=== PATIENT | male | born 1985 | race African-American/Black ===

== ENCOUNTER 2023-04-02 13:07 | Observation (INO) | payer OTHER ==
[~2023-04-02] VITALS: Ht 193 cm; Wt 104.7 kg
[2023-04-02] MEDS ORDERED: dexAMETHasone 20MG/5ML VIAL IV ONE (14:00)
[2023-04-02] MEDS ORDERED: NS 1,000 ML IV ONE (14:00)
[2023-04-02 14:21] LABS: BASO % 0.2 % (0.0-1.0); EOS # 0.1 10^3/uL (0.0-0.5); EOS % 0.5 % (0.0-3.0); HEMATOCRIT 40.1 % (42.0-52.0); HEMOGLOBIN 13.1 g/dl (13.5-17.5); LYMPH # 1.2 10^3/uL (1.5-5.0); LYMPH % 9.2 % (24.0-44.0); MEAN CORPUSCULAR HEMOGLOBIN 29.8 pg (27.0-33.0); MEAN CORPUSCULAR HGB CONC 32.7 g/dl (32.0-36.5); MEAN CORPUSCULAR VOLUME 91.3 fl (80.0-96.0); MONO # 1.3 10^3/uL (0.0-0.8); MONO % 9.9 % (2.0-8.0); NEUTROPHILS # 10.5 10^3/uL (1.5-8.5); NEUTROPHILS % 79.6 % (36.0-66.0); PLATELET COUNT, AUTOMATED 254 10^3/uL (150-450); RED BLOOD COUNT 4.39 10^6/uL (4.30-6.10); WHITE BLOOD COUNT 13.2 10^3/uL (4.0-10.0)
[2023-04-02] MEDS ORDERED: AMPICILLIN SOD/SULBACTAM SOD 3 GM in D5W MINI-BAG PLUS 100 ML IV ONE (14:35)
[2023-04-02] MEDS ORDERED: ACETAMINOPHEN TAB 650MG DOSE (2X325MG) PO ONE (14:35)
[2023-04-02 14:44] LABS: BLOOD UREA NITROGEN 17 MG/DL (9-23); CALCIUM LEVEL 9.3 MG/DL (8.5-10.1); CARBON DIOXIDE LEVEL 28 MMOL/L (20-31); CHLORIDE LEVEL 102 MMOL/L (98-107); CREATININE FOR GFR 1.15 MG/DL (0.70-1.30); GLOMERULAR FILTRATION RATE > 60.0 (>60); GLUCOSE, FASTING 101 MG/DL (60-100); POTASSIUM SERUM 4.1 MMOL/L (3.5-5.1); SODIUM LEVEL 140 MMOL/L (136-145)
[2023-04-02] MEDS ORDERED: ISOVUE-370 76% 100ML VIAL As Ordered ONE (14:50)
[2023-04-02] MEDS ORDERED: MED REC IN PROGRESS XX SCH (16:15)
[2023-04-02] MEDS ORDERED: ACETAMINOPHEN 500 MG TAB PO PRN (16:25)
[2023-04-02] MEDS ORDERED: KETOROLAC 30 MG/ML 1ML VIAL IV PRN (16:25)
[2023-04-02] MEDS ORDERED: CEPACOL LOZENGE PO PRN (16:25)
[2023-04-02] MEDS ORDERED: GNPCAP31 PO (16:54)
[2023-04-02] MEDS ORDERED: DM/P237L PO (16:54)
[2023-04-02] MEDS ORDERED: HOME MED LIST COMPLETE! XX SCH (16:55)
[2023-04-02 20:30] VITALS: BP 138/80; TEMP 97.5; O2SAT 98
[2023-04-02] MEDS: AMPICILLIN SOD/SULBACTAM SOD 3 GM in D5W MINI-BAG PLUS 100 ML IV SCH (20:43)
[2023-04-03] MEDS: AMPICILLIN SOD/SULBACTAM SOD 3 GM in D5W MINI-BAG PLUS 100 ML IV SCH ×2 (03:27→09:23)
[2023-04-03 06:22] VITALS: BP 141/82; TEMP 97.7; O2SAT 100
[2023-04-03 06:54] LABS: HEMATOCRIT 38.6 % (42.0-52.0); HEMOGLOBIN 12.8 g/dl (13.5-17.5); MEAN CORPUSCULAR HEMOGLOBIN 29.8 pg (27.0-33.0); MEAN CORPUSCULAR HGB CONC 33.2 g/dl (32.0-36.5); PLATELET COUNT, AUTOMATED 263 10^3/uL (150-450); RED BLOOD COUNT 4.29 10^6/uL (4.30-6.10); WHITE BLOOD COUNT 16.1 10^3/uL (4.0-10.0)
[2023-04-03 07:18] LABS: BLOOD UREA NITROGEN 15 MG/DL (9-23); CALCIUM LEVEL 9.1 MG/DL (8.5-10.1); CARBON DIOXIDE LEVEL 30 MMOL/L (20-31); CHLORIDE LEVEL 102 MMOL/L (98-107); CREATININE FOR GFR 0.94 MG/DL (0.70-1.30); GLOMERULAR FILTRATION RATE > 60.0 (>60); GLUCOSE, FASTING 127 MG/DL (60-100); POTASSIUM SERUM 4.2 MMOL/L (3.5-5.1); SODIUM LEVEL 138 MMOL/L (136-145)
[2023-04-03 07:24] LABS: PROCALCITONIN <0.04 ng/ml
[2023-04-03] MEDS ORDERED: ENOXAPARIN 40MG/0.4ML SYRINGE (J1650 PER 10MG) SC SCH (09:00)
[2023-04-03] MEDS ORDERED: dexAMETHasone 20MG/5ML VIAL IV SCH (09:00)
[2023-04-03] MEDS ORDERED: ACET-841 PO (09:29)
[2023-04-03] MEDS ORDERED: AMOX875T2 PO (09:29)
[2023-04-03] MEDS ORDERED: DEXA4TA PO (09:31)
== END 2023-04-03 11:00 | disposition home or self-care (01) ==
LOC: M ED 13:07 → INTOOBSV 16:18 → M ED INP 16:18 → M MS4PR 19:57
PROVIDERS: ADMIT Internal Medicine; ATTEND Internal Medicine
DX: A41.9 Sepsis, unspecified organism (principal); J03.90 Acute tonsillitis, unspecified; D72.829 Elevated white blood cell count, unspecified; Z79.52 Long term (current) use of systemic steroids; Z79.899 Other long term (current) drug therapy; Z79.2 Long term (current) use of antibiotics
CPT/HCPCS: 36415; 70491; 80048; 83605; 84145; 85025; 85027; 87040; 87486; 87581; 87633; 87798; 87880; 93041; 94760; 96365; 96366; 96375; 96376; 99285; J0295; J1100; Q9967

== ENCOUNTER 2023-04-08 02:48 | Inpatient (IN) | payer OTHER ==
[2023-04-08] VITALS (7 sets, daily range): BP systolic 128–143; BP diastolic 61–87; TEMP 97.5–98.5; O2SAT 90–96
[~2023-04-08] VITALS: Ht 193 cm; Wt 115.0 kg
[~2023-04-08 02:48] MED LIST: ACET-841 PO; AMOX875T2 PO; DEXA4TA PO; DM/P237L PO; GNPCAP31 PO
[2023-04-08] MEDS ORDERED: NS 1,000 ML IV ONE (05:10)
[2023-04-08] MEDS ORDERED: AMPICILLIN SOD/SULBACTAM SOD 3 GM in D5W MINI-BAG PLUS 100 ML IV ONE (05:40)
[2023-04-08] MEDS ORDERED: ISOVUE-370 76% 100ML VIAL As Ordered ONE (05:46)
[2023-04-08 06:06] LABS: BASO % 0.3 % (0.0-1.0); EOS # 0.2 10^3/uL (0.0-0.5); EOS % 1.1 % (0.0-3.0); HEMATOCRIT 38.4 % (42.0-52.0); HEMOGLOBIN 12.6 g/dl (13.5-17.5); LYMPH # 3.2 10^3/uL (1.5-5.0); LYMPH % 20.1 % (24.0-44.0); MEAN CORPUSCULAR HEMOGLOBIN 29.9 pg (27.0-33.0); MEAN CORPUSCULAR HGB CONC 32.8 g/dl (32.0-36.5); MEAN CORPUSCULAR VOLUME 91.2 fl (80.0-96.0); MONO # 1.2 10^3/uL (0.0-0.8); MONO % 7.9 % (2.0-8.0); NEUTROPHILS # 10.9 10^3/uL (1.5-8.5); NEUTROPHILS % 68.9 % (36.0-66.0); PLATELET COUNT, AUTOMATED 313 10^3/uL (150-450); RED BLOOD COUNT 4.21 10^6/uL (4.30-6.10); WHITE BLOOD COUNT 15.8 10^3/uL (4.0-10.0)
[2023-04-08] MEDS ORDERED: MORPHINE 2 MG/ML 1ML VIAL IV ONE (06:40)
[2023-04-08] MEDS ORDERED: AMOX875T2 PO (06:46)
[2023-04-08] MEDS ORDERED: ACET-897 PO (06:46)
[2023-04-08] MEDS ORDERED: HOME MED LIST COMPLETE! XX SCH (06:50)
[2023-04-08] MEDS: ACETAMINOPHEN TAB 650MG DOSE (2X325MG) PO PRN ×2 (08:09→16:55)
[2023-04-08 08:38] LABS: ALBUMIN 3.1 G/DL (3.2-5.2); ALKALINE PHOSPHATASE 58 U/L (46-116); ALT/SGPT 30 U/L (7.0-40); AST/SGOT 10 U/L (<34); BILIRUBIN,TOTAL 0.5 MG/DL (0.3-1.2); BLOOD UREA NITROGEN 16 MG/DL (9-23); CALCIUM LEVEL 8.7 MG/DL (8.5-10.1); CARBON DIOXIDE LEVEL 33 MMOL/L (20-31); CHLORIDE LEVEL 104 MMOL/L (98-107); CREATININE FOR GFR 1.14 MG/DL (0.70-1.30); GLOMERULAR FILTRATION RATE > 60.0 (>60); GLUCOSE, FASTING 89 MG/DL (60-100); MAGNESIUM LEVEL 1.8 MG/DL (1.8-2.4); POTASSIUM SERUM 3.6 MMOL/L (3.5-5.1); SODIUM LEVEL 141 MMOL/L (136-145); TOTAL PROTEIN 6.3 G/DL (5.7-8.2)
[2023-04-08] MEDS: NS 1,000 ML IV SCH ×2 (08:59→20:12)
[2023-04-08 09:15] LABS: ANTI-STREPTOLYSIN O QUANT 170.4 IU/ML (<195)
[2023-04-08] MEDS ORDERED: MIDAZOLAM INJ 2MG/2ML VIAL As Ordered ONE (10:16)
[2023-04-08] MEDS ORDERED: ROCURONIUM BROMIDE 50MG/5ML VIAL As Ordered ONE (10:16)
[2023-04-08] MEDS ORDERED: ONDANSETRON 4MG 2ML VIAL As Ordered ONE (10:16)
[2023-04-08] MEDS ORDERED: propofoL 200 MG/20 ML VIAL As Ordered ONE (10:16)
[2023-04-08] MEDS ORDERED: fentaNYL 100 MCG/2 ML INJECTION As Ordered ONE (10:16)
[2023-04-08] MEDS ORDERED: LIDOCAINE 2% 100MG/5ML SDV (FOR ANES.) As Ordered ONE (10:16)
[2023-04-08] MEDS ORDERED: ACETAMINOPHEN 1000MG 100ML IV BAG As Ordered ONE (10:22)
[2023-04-08] MEDS ORDERED: CLINDAMYCIN 900MG/50ML PREMIX BAG As Ordered ONE (12:47)
[2023-04-08] MEDS ORDERED: LIDOCAINE W/EPINEPHRINE 1% 20ML VIAL As Ordered ONE (12:47)
[2023-04-08] MEDS ORDERED: LABETALOL 100MG/20ML VIAL As Ordered ONE (13:15)
[2023-04-08] MEDS ORDERED: dexmedeTOMIDine (4MCG/ML)200MCG/50ML BTL (PRECEDEX) As Ordered ONE (13:23)
[2023-04-08] MEDS ORDERED: SUGAMMADEX SODIUM 500 MG/5 ML VIAL (BRIDION) As Ordered ONE (13:27)
[2023-04-08] MEDS ORDERED: LR 1,000 ML IV SCH (13:45)
[2023-04-08] MEDS ORDERED: ONDANSETRON 4MG 2ML VIAL IV PRN (13:45)
[2023-04-08] MEDS ORDERED: HYDROMORPHONE HCL 0.5 MG/ 0.5 ML SYRINGE IV PRN (13:45)
[2023-04-08] MEDS: oxyCODONE 5MG TAB PO PRN ×2 (14:09→14:40)
[2023-04-08] MEDS: fentaNYL 100 MCG/2 ML INJECTION IV PRN ×4 (14:10→14:30)
[2023-04-08] MEDS: methylPREDNISolone 40MG 1ML VIAL IV SCH ×2 (15:05→23:45)
[2023-04-08] MEDS: AMPICILLIN SOD/SULBACTAM SOD 3 GM in D5W MINI-BAG PLUS 100 ML IV SCH ×3 (15:06→23:45)
[2023-04-09] VITALS (7 sets, daily range): BP systolic 115–137; BP diastolic 52–78; TEMP 97.5–98.3; O2SAT 94–99
[2023-04-09] MEDS: NS 1,000 ML IV SCH (05:20)
[2023-04-09] MEDS: AMPICILLIN SOD/SULBACTAM SOD 3 GM in D5W MINI-BAG PLUS 100 ML IV SCH ×3 (05:20→17:40)
[2023-04-09 06:41] LABS: BASO % 0.1 % (0.0-1.0); HEMATOCRIT 37.8 % (42.0-52.0); HEMOGLOBIN 12.3 g/dl (13.5-17.5); LYMPH # 0.7 10^3/uL (1.5-5.0); LYMPH % 5.2 % (24.0-44.0); MEAN CORPUSCULAR HEMOGLOBIN 29.2 pg (27.0-33.0); MEAN CORPUSCULAR HGB CONC 32.5 g/dl (32.0-36.5); MEAN CORPUSCULAR VOLUME 89.8 fl (80.0-96.0); MONO # 0.3 10^3/uL (0.0-0.8); MONO % 2.2 % (2.0-8.0); NEUTROPHILS # 12.9 10^3/uL (1.5-8.5); PLATELET COUNT, AUTOMATED 340 10^3/uL (150-450); RED BLOOD COUNT 4.21 10^6/uL (4.30-6.10); WHITE BLOOD COUNT 14.2 10^3/uL (4.0-10.0)
[2023-04-09] MEDS: ACETAMINOPHEN TAB 650MG DOSE (2X325MG) PO PRN (08:02)
[2023-04-09] MEDS ORDERED: INFLUENZA QUADRIVALENT PF VACCINE 0.5ML SYRINGE IM.IMMUN ONE (09:00)
[2023-04-09] MEDS: predniSONE 20 MG TAB PO SCH (11:34)
[2023-04-09 15:21] LABS: BLOOD UREA NITROGEN 13 MG/DL (7-21); C REACTIVE PROTEIN QUANTITATIV 38.95 MG/L (1.00-3.00); CREATININE FOR GFR 0.9 MG/DL (0.7-1.5); GLOMERULAR FILTRATION RATE > 60.0 (>60); GLUCOSE, FASTING 148 MG/DL (70-99); POTASSIUM SERUM 4.6 MEQ/L (3.6-5.0); SODIUM LEVEL 138 MEQ/L (134-153)
[2023-04-09 15:22] LABS: CALCIUM LEVEL 9.2 MG/DL (8.4-10.2); CARBON DIOXIDE LEVEL 25 MEQ/L (22-30); CHLORIDE LEVEL 100 MEQ/L (98-107)
[2023-04-10] MEDS: AMPICILLIN SOD/SULBACTAM SOD 3 GM in D5W MINI-BAG PLUS 100 ML IV SCH ×3 (00:29→11:12)
[2023-04-10 03:37] VITALS: BP 138/75; TEMP 97.9; O2SAT 98
[2023-04-10 05:48] LABS: BASO % 0.2 % (0.0-1.0); EOS # 0.1 10^3/uL (0.0-0.5); EOS % 0.6 % (0.0-3.0); HEMATOCRIT 33.4 % (42.0-52.0); HEMOGLOBIN 11.2 g/dl (13.5-17.5); LYMPH # 2.5 10^3/uL (1.5-5.0); LYMPH % 18.5 % (24.0-44.0); MEAN CORPUSCULAR HEMOGLOBIN 29.6 pg (27.0-33.0); MEAN CORPUSCULAR HGB CONC 33.5 g/dl (32.0-36.5); MEAN CORPUSCULAR VOLUME 88.1 fl (80.0-96.0); MONO # 1.1 10^3/uL (0.0-0.8); NEUTROPHILS # 9.8 10^3/uL (1.5-8.5); NEUTROPHILS % 71.7 % (36.0-66.0); PLATELET COUNT, AUTOMATED 302 10^3/uL (150-450); RED BLOOD COUNT 3.79 10^6/uL (4.30-6.10); WHITE BLOOD COUNT 13.7 10^3/uL (4.0-10.0)
[2023-04-10] MEDS: ACETAMINOPHEN TAB 650MG DOSE (2X325MG) PO PRN (06:04)
[2023-04-10 07:47] VITALS: BP 128/63; TEMP 98.1; O2SAT 98
[2023-04-10] MEDS: predniSONE 20 MG TAB PO SCH (08:04)
[2023-04-10 11:55] VITALS: BP 128/73; TEMP 97.6; O2SAT 97
[2023-04-10] MEDS ORDERED: metroNIDAZOLE (FLAGYL) 500MG TABLET PO SCH (14:00)
[2023-04-10] MEDS ORDERED: CEFUROXIME 500 MG TAB PO SCH (14:00)
[2023-04-10] MEDS ORDERED: CEFU50TA PO (15:02)
[2023-04-10] MEDS ORDERED: METR-265 PO (15:02)
[2023-04-11 09:10] LABS: BLOOD UREA NITROGEN 18 MG/DL (7-21); CALCIUM LEVEL 8.8 MG/DL (8.4-10.2); CARBON DIOXIDE LEVEL 28 MEQ/L (22-30); CHLORIDE LEVEL 104 MEQ/L (98-107); GLOMERULAR FILTRATION RATE > 60.0 (>60); GLUCOSE, FASTING 117 MG/DL (70-99); SODIUM LEVEL 140 MEQ/L (134-153)
[2023-04-11 09:11] LABS: C REACTIVE PROTEIN QUANTITATIV 15.31 MG/L (1.00-3.00)
== END 2023-04-10 15:58 | disposition home or self-care (01) | DRG 402 ==
LOC: M ED 02:48 → M ED INP 07:01 → ENRESERV 09:50 → M PCU 10:19
PROVIDERS: ADMIT Internal Medicine; ATTEND Internal Medicine
PROC: 0C9P0ZZ Drainage of Tonsils, Open Approach (ICD-10-PCS; principal; 2023-04-08 12:00)
DX: J36 Peritonsillar abscess (principal)